=== PATIENT | male | born 1960 | race Caucasian/White ===

== ENCOUNTER → 2020-06-24 | Outpatient (CLI) | payer OTHER | LOC: LAB 14:06 | PROVIDERS: ATTEND Nurse Practitioner | DX: R05 Cough (principal); Z20.828 Contact with and (suspected) exposure to other viral communicable diseases ==

== ENCOUNTER → 2020-08-15 | Outpatient (CLI) | payer OTHER | LOC: LAB 12:01 | PROVIDERS: ATTEND Nurse Practitioner | DX: Z20.828 Contact with and (suspected) exposure to other viral communicable diseases (principal) ==

== ENCOUNTER → 2020-09-01 | Outpatient (CLI) | payer OTHER | LOC: ULTRA 09:46 | PROVIDERS: ATTEND Nurse Practitioner | DX: M79.89 Other specified soft tissue disorders (principal); M79.606 Pain in leg, unspecified ==